=== PATIENT | female | born 1955 | race Caucasian/White ===

== ENCOUNTER → 2019-06-11 | Outpatient (CLI) | payer OTHER | END | disposition home or self-care (01) | LOC: RAH 10:28 | PROVIDERS: ATTEND Internal Medicine | DX: S05.12XS Contusion of eyeball and orbital tissues, left eye, sequela (principal); W19.XXXS Unspecified fall, sequela | CPT/HCPCS: 70150; 70160 ==

== ENCOUNTER → 2023-09-04 | Outpatient (CLI) | payer OTHER ==
[2023-09-04 12:23] LABS: BASOPHILS # (AUTO) 0.07 K/uL (0.00-0.20); BASOPHILS % (AUTO) 1.1 % (0.0-5.0); EOSINOPHILS # (AUTO) 0.22 K/uL (0.00-0.70); EOSINOPHILS % (AUTO) 3.4 % (0.0-8.0); HEMATOCRIT 47.3 % (36-48); IMMATURE GRANULOCYTE ABSOLUTE 0.01 K/uL (0-1); LYMPHOCYTES # (AUTO) 2.5 K/uL (1.0-4.8); LYMPHOCYTES % (AUTO) 38.6 % (21.0-51.0); MEAN CORPUSCULAR HEMOGLOBIN 35.9 pg (27.0-33.0); MEAN CORPUSCULAR VOLUME 105.3 fL (79-99); MONOCYTES # (AUTO) 0.5 K/uL (0.1-1.0); MONOCYTES % (AUTO) 7.6 % (3.0-13.0); NEUTROPHILS # (AUTO) 3.2 K/uL (1.8-7.7); NEUTROPHILS % (AUTO) 49.1 % (40.0-77.0); PLATELET COUNT (AUTO) 228 K/uL (130-400); RED BLOOD CELL COUNT(AUTO) 4.49 MIL/uL (4.00-5.50); RED CELL DISTRIBUTION WIDTH 12.1 % (11.0-15.5); WHITE BLOOD COUNT (AUTO) 6.6 K/uL (4.8-10.8)
[2023-09-04 12:48] LABS: ALBUMIN 4.1 g/dL (3.5-5.0); BILIRUBIN,TOTAL 0.9 mg/dL (0.2-1.0); CREATININE 0.7 mg/dL (0.5-1.5); MAGNESIUM 1.9 mg/dL (1.80-2.40); POTASSIUM 4.4 mmol/L (3.5-5.1); T4 (THYROXINE) 8.1 ug/dL (4.7-13.3); THYROID STIMULATING HORMONE 3.55 uIU/mL (0.36-3.74)
== END | disposition home or self-care (01) ==
LOC: LAB 10:49
PROVIDERS: ATTEND Internal Medicine Cardiovascular Disease
DX: R00.2 Palpitations (principal); E78.5 Hyperlipidemia, unspecified
CPT/HCPCS: 36415; 80053; 80061; 83735; 84436; 84443; 84479; 85025

== ENCOUNTER → 2023-09-11 | Outpatient (CLI) | payer OTHER | END | disposition home or self-care (01) | LOC: OIH 09:40 | PROVIDERS: ATTEND Internal Medicine Cardiovascular Disease | DX: Z13.6 Encounter for screening for cardiovascular disorders (principal) | CPT/HCPCS: 75571 ==

== ENCOUNTER 2024-05-06 05:53 | Day surgery (SDC) | payer OTHER ==
[2024-05-06] VITALS (19 sets, daily range): BP systolic 101–117; BP diastolic 54–75; PULSE 59–68; RESP 14–16
[~2024-05-06] VITALS: Ht 177.8 cm; Wt 90.7 kg
[~2024-05-06 05:53] MED LIST: APIX5TAB PO; ASCO500T19 PO; ATOR10 PO; BIOT1CAP3 PO; CALC-866 PO; LEVO125C4 PO; MAGN400T40 PO; METO25TA6 PO; PROP225C24 PO; VIT1CAPS47 PO; [UNRECOGNIZED DRUG - CODE] PO
[2024-05-06] MEDS: 0.9%NACL 1000ML 1,000 ML IV ONE (06:46)
[2024-05-06] MEDS ORDERED: PHENYLEPHRINE HCL 10 MG/ML 1ML VIAL IV ONE ×3 (06:51→13:02)
[2024-05-06] MEDS ORDERED: GLYCOPYRROLATE 0.2 MG/ML 5 ML VIAL ONE (06:51)
[2024-05-06] MEDS ORDERED: DEXAMETHASONE SOD PHOSPHATE 10MG/ML 1ML VIAL ONE (06:51)
[2024-05-06] MEDS ORDERED: MIDAZOLAM HCL 1 MG/ML 2ML VIAL ONE (06:51)
[2024-05-06] MEDS ORDERED: LIDOCAINE PF 100MG/5ML (2%) SYRINGE 5ML ONE (06:51)
[2024-05-06] MEDS ORDERED: ONDANSETRON 4MG INJ ONE (06:51)
[2024-05-06] MEDS ORDERED: PROPOFOL 10 MG/ML 20ML VIAL IV ONE (06:52)
[2024-05-06] MEDS ORDERED: EPHEDRINE SULFATE 50 MG/ML AMPULE ONE (06:52)
[2024-05-06] MEDS ORDERED: ROCURONIUM BROMIDE 10MG/1ML 5ML VL ONE (06:52)
[2024-05-06] MEDS ORDERED: NEOSTIGMINE METHYLSULFATE 1MG/ML IV ONE (06:52)
[2024-05-06] MEDS ORDERED: FENTANYL CITRATE PF 50 MCG/1 ML 5ML AMP IV ONE (06:52)
[2024-05-06] MEDS ORDERED: HEPARIN 10,000 UNIT/10ML (1,000 UNIT/ML) VIAL ONE ×3 (07:29→10:26)
[2024-05-06] MEDS ORDERED: LIDOCAINE HCL 400MG/20ML VIAL ONE (07:40)
[2024-05-06] MEDS ORDERED: AMIOdarone 150MG VIAL ONE (08:53)
[2024-05-06] MEDS ORDERED: PROTAMINE SULFATE 10 MG/ML 5 ML VIAL ONE (13:41)
[2024-05-06] MEDS ORDERED: PANTOPRAZOLE 40 MG TAB DR PO ONE (15:30)
[2024-05-06] MEDS ORDERED: SUCRALFATE 1 GM/10 ML PO ONE (15:30)
== END 2024-05-06 18:15 | disposition home or self-care (01) ==
LOC: DAH 05:53
PROVIDERS: ATTEND Internal Medicine Cardiovascular Disease
DX: I48.0 Paroxysmal atrial fibrillation (principal); E78.5 Hyperlipidemia, unspecified; E03.9 Hypothyroidism, unspecified; F32.A Depression, unspecified; M85.80 Other specified disorders of bone density and structure, unspecified site; E66.9 Obesity, unspecified; G62.9 Polyneuropathy, unspecified; Z90.89 Acquired absence of other organs; Z90.49 Acquired absence of other specified parts of digestive tract; Z90.710 Acquired absence of both cervix and uterus; Z98.890 Other specified postprocedural states; Z79.82 Long term (current) use of aspirin; Z79.899 Other long term (current) drug therapy
CPT/HCPCS: 93656; 93005; 93655; 93657 ×2; 85347 ×9; 36415; A4344; C1894 ×2; C1732 ×3; A4649 ×2; C1766; J3010; J3490 ×4; J1100; J7030; J2001; J2720; J1644 ×5; J2250; J2704; J2405; J2710; J2371 ×3; J0282; A4215; A4222; A4221; A4663; A4216; A4606; A4223 ×3

== ENCOUNTER 2025-05-28 15:28 | Emergency (ER) | payer OTHER ==
[~2025-05-28] VITALS: Ht 177.8 cm; Wt 90.7 kg
[~2025-05-28 15:28] MED LIST changes: -LEVO125C4 PO; +LEVO125C5 PO
[2025-05-28 15:32] VITALS: BP 158/98; PULSE 78; RESP 18; TEMP 97.8
[2025-05-28 16:05] LABS: IMMATURE GRANULOCYTE ABSOLUTE 0.02 K/uL (0-1); NUCLEATED RED BLOOD CELLS 0.0 % (0.0-0.19); PLATELET COUNT (AUTO) 247 K/uL (130-400); RED BLOOD CELL COUNT(AUTO) 4.33 MIL/uL (4.00-5.50); RED CELL DISTRIBUTION WIDTH 12.6 % (11.0-15.5); WHITE BLOOD COUNT (AUTO) 7.6 K/uL (4.8-10.8)
[2025-05-28 16:15] LABS: CREATININE 0.7 mg/dL (0.5-1.0); GLOMERULAR FILTR. RATE CALC 92.0 mL/min (>90); GLUCOSE,RANDOM 119.0 mg/dL (70-105); INR 1.14 (0.85-1.15); SODIUM SERUM 140.0 mmol/L (136-145); UREA NITROGEN, BLOOD 14.0 mg/dL (7-18)
[2025-05-28 16:23] LABS: ALCOHOL, BLOOD 14.0 mg/dL (0-10); ASPARTATE AMINOTRANSFERASE 16.0 U/L (10-37); CREATINE KINASE, TOTAL 266.0 U/L (21-232); TOTAL PROTEIN, SERUM 7.2 g/dL (6.0-8.3)
--- NOTE | 2025-05-28 16:33 | HMCIMG ---
EXAM: CT Cervical Spine Without IV contrast. CLINICAL HISTORY: fall TECHNIQUE: Axial computed tomography images of the cervical spine without intravenous contrast. Sagittal and coronal reformatted images were generated. COMPARISON: None provided. FINDINGS: ALIGNMENT: Bony alignment is anatomic. DEGENERATIVE CHANGES: Multiple perivertebral osteophytes noted.No significant canal stenosis or neural foraminal narrowing is evident. SOFT TISSUES: The prevertebral soft tissues are within normal limits. BONES: No acute fracture or aggressively appearing osseous lesion. IMPRESSION: 1. No acute cervical spine fracture or dislocation. 2. Multilevel degenerative changes with perivertebral osteophytes, without significant canal stenosis or neural foraminal narrowing. 3. Normal prevertebral soft tissues. 4. Anatomic bony alignment. /[place]
--- NOTE | 2025-05-28 17:01 | HMCIMG ---
EXAM: CT Head Without IV contrast. CLINICAL HISTORY: FALL, ON ELIQUIS TECHNIQUE: Axial computed tomography images of the head/brain without intravenous contrast. COMPARISON: None provided. FINDINGS: BRAIN: No evidence of acute hemorrhage. No mass lesion. No CT evidence for acute territorial infarct. No midline shift or extra-axial collections. VENTRICLES: No hydrocephalus. ORBITS: The orbits are unremarkable. SINUSES AND MASTOIDS: The paranasal sinuses and mastoid air cells are clear. BONES: No fracture. SOFT TISSUES: Unremarkable. IMPRESSION: No acute intracranial abnormality. /[place]
--- NOTE | 2025-05-28 17:07 | HMCIMG ---
EXAM: CR right Wrist, 2 View. CLINICAL HISTORY: FALL, COMPARISON: None provided. FINDINGS: Mildly displaced, comminuted fracture of the distal radius with slight volar angulation of the distal fracture fragment. Mildly displaced fracture of the distal ulna involving the styloid process. Joint spaces remain anatomically aligned. Radiocarpal joint osteoarthritis. IMPRESSION: 1. Mildly displaced, comminuted distal radius fracture with slight volar angulation and mildly displaced distal ulna fracture involving the styloid process. 2. Radiocarpal joint osteoarthritis. /[place]
--- NOTE | 2025-05-28 17:08 | HMCIMG ---
EXAM: CR Chest, 1 View. CLINICAL HISTORY: fall COMPARISON: None provided. FINDINGS: LUNGS: There is no mass, infiltrate, or acute pulmonary abnormality. PLEURAL SPACES: No evidence of pleural effusion or pneumothorax. MEDIASTINUM: Cardiac size and mediastinal contours within normal limits. BONES: No aggressive appearing osseous lesion seen. IMPRESSION: No acute cardiopulmonary pathology is evident. /[place]
[2025-05-28] MEDS ORDERED: ACET-2247 PO (17:36)
--- NOTE | 2025-05-28 17:36 | ERN ---
ED Note History of Present Illness Stated Complaint: FALL Chief Complaint: Multiple Trauma/Fall Time Seen by MD: 15:35 Dictation: 70-year-old female presenting to the emergency department after mechanical fall on blood thinners head injury and right wrist pain with deformity. No chest pain shortness of breath or abdominal pain Allergies: Coded Allergies: No Known Drug Allergies (Unverified Allergy, Unknown, 05/01/24) Home Meds Reported Medications Calcium/D3/Mag Ox/[employer] Equipment [employer]/[place]/Zn (Caltrate 101-L3-Uxlvwumx Tab) 600 Mg-20 Tablet, 1 EACH PO DAILY, TAB 05/05/24 Atorvastatin Calcium (LIPITOR) 10 Mg Tab, 10 MG PO AM, TAB 05/05/24 Magnesium Oxide (Magnesium) 400 Mg Magnesium Tablet, 400 MG PO DAILY, TAB 05/05/24 Cholecalciferol (Vitamin D3) (Vitamin D3) 125 Mcg (5000 Unit) Tablet, 125 MCG PO DAILY, TAB 05/05/24 Biotin (Biotin) 1 Mg Capsule, 1 MG PO DAILY, CAP 05/01/24 Ascorbic Acid/Ascorbate Sodium (Vitamin C 500 mg Tablet Chew) 500 Mg Tab.chew, 500 MG PO DAILY, TAB.CHEW 05/01/24 Vit C/E/Zn/Coppr/Lutein/Zeaxan (Preservision Areds 2 Softgel) 250MG-90MG Capsule, 1 EACH PO DAILY, CAP 05/01/24 Levothyroxine Sodium (Levothyroxine) 125 Mcg Capsule, 125 MCG PO AM, CAP 05/01/24 Metoprolol Tartrate (Metoprolol Tartrate) 25 Mg Tablet, 25 MG PO BID, TAB 05/01/24 Apixaban (Eliquis) 5 Mg Tablet, 5 MG PO BID, TAB 05/01/24 Propafenone HCl (Propafenone HCl) 225 Mg Cap.er.12h, 225 MG PO BID, CAPSULE. 05/01/24 Past Medical History Past Medical History: Heart Disease, Hypothyroid Surgical History: None Surgical History Other: RIGHT WRIST SX, JAW SX Review of System Dictation Constitutional: Negative for fever,chills, and weight loss Eyes: Negative for injury, pain,redness, and discharge ENT: Negative for injury,pain or swelling Cardiovascular: Negative for chest pain, palpitations, and edema Respiratory: Negative for shortness of breath, cough, and wheezing, Abdomen/GI: Negative for abdominal pain, nausea, vomiting, diarrhea, and constipation Back: Negative for injury and pain : Negative for injury, bleeding and discharge MS/Extremity: Per HPI Skin: Negative for rash, and discoloration Neuro: Per HPI Initial Vital Sign VS Vital Signs Date Time Temp Pulse Resp B/P (MAP) Pulse Ox O2 Delivery O2 Flow Rate FiO2 05/28/25 15:32 97.9 78 18 158/98 95 Physical Exam Dictation General: awake, alert, uncomfortable Head/Face: Normocephalic, atraumatic Eyes: PERRL, EOMI, vision at baseline ENT: oral cavity clear, TMs clear, no signs of infection Neck: Trachea midline, supple, no nuchal rigidity Cardiovascular: RRR, normal S1/S2, No MRGs, no JVD Respiratory: CTAB, no respiratory distress, No rales or wheezes Abdomen: Soft, non-tender, non-distended, normal bowel sounds, no guarding or rebound. Skin: Warm, dry, normal turgor, no rash MS/Extremity: Pulses equal, no cyanosis, neurovascular intact, FROM, right tenderness to palpation to the wrist area closed mild deformity good pulses Neuro: COAx4, GCS 15, strength 5/5, CN 2-12 intact, normal cerebellar exam, normal gait, Psych: Normal behavior, mood, and affect normal Results (Laboratory/Radiology) Laboratory/Radiology Laboratory Tests Test 05/28/25 15:54 White Blood Count 7.6 K/uL (4.8-10.8) Red Blood Count 4.33 MIL/uL (4.00-5.50) Hemoglobin 15.5 g/dL (12.0-16.0) Hematocrit 44.3 % (36-48) Mean Corpuscular Volume 102.3 fL (79-99) H Mean Corpuscular Hemoglobin 35.8 pg (27.0-33.0) H Mean Corpuscular Hemoglobin Concent 35.0 g/dL (32.0-36.0) Red Cell Distribution Width 12.6 % (11.0-15.5) Platelet Count 247 K/uL (130-400) Mean Platelet Volume 9.9 fL (7.5-10.5) Immature Granulocyte % (Auto) 0.3 % (0-1) Neutrophils (%) (Auto) 67.7 % (40.0-77.0) Lymphocytes (%) (Auto) 25.0 % (21.0-51.0) Monocytes (%) (Auto) 6.2 % (3.0-13.0) Eosinophils (%) (Auto) 0.3 % (0.0-8.0) Basophils (%) (Auto) 0.5 % (0.0-5.0) Neutrophils # (Auto) 5.2 K/uL (1.8-7.7) Lymphocytes # (Auto) 1.9 K/uL (1.0-4.8) Monocytes # (Auto) 0.5 K/uL (0.1-1.0) Eosinophils # (Auto) 0.02 K/uL (0.00-0.70) Basophils # (Auto) 0.04 K/uL (0.00-0.20) Absolute Immature Granulocyte (auto 0.02 K/uL (0-1) Nucleated Red Blood Cells 0.0 % (0.0-0.19) Prothrombin Time 11.9 SEC (9.6-11.6) H Prothromb Time International Ratio 1.14 (0.85-1.15) Activated Partial Thromboplast Time 25.7 SEC (26.3-35.5) L Sodium Level 140 mmol/L (136-145) Potassium Level 4.0 mmol/L (3.5-5.1) Chloride Level 103 mmol/L (101-111) Carbon Dioxide Level 28 mmol/L (21-32) Blood Urea Nitrogen 14 mg/dL (7-18) Creatinine 0.7 mg/dL (0.5-1.0) Glomerular Filtration Rate Calc 92 mL/min (>90) Random Glucose 119 mg/dL (70-105) H Total Calcium 9.0 mg/dL (8.5-10.1) Total Bilirubin 0.5 mg/dL (0.2-1.0) Direct Bilirubin 0.2 mg/dL (0.0-0.3) Aspartate Amino Transf (AST/SGOT) 16 U/L (10-37) Alanine Aminotransferase (ALT/SGPT) 34 U/L (12-78) Alkaline Phosphatase 130 U/L (50-136) Total Creatine Kinase 266 U/L (21-232) #H Troponin I High Sensitivity 22 ng/L (4-50) Total Protein 7.2 g/dL (6.0-8.3) Albumin 4.0 g/dL (3.5-5.0) Serum Alcohol 14 mg/dL (0-10) H Labs Reviewed?: Yes EKG Comment: Heart rate 71, normal intervals no STEMI or STEMI equivalent ED Course ED Course Orders Procedure Category Date Status Time Ct Head/Brain W/O CT 05/28/25 Resulted Contrast 15:35 Wrist Comp 3+Vws Rt RAD 05/28/25 Resulted 15:35 Chest 1vw RAD 05/28/25 Resulted 15:38 Ct Cervical Spine W/O CT 05/28/25 Resulted Contrast 15:38 12 Lead Ekg Tracing- EKG 05/28/25 Logged Technical 15:38 Basic Metabolic Panel LAB 05/28/25 Complete 15:38 Alcohol, Blood LAB 05/28/25 Complete 15:38 Cbc With Differential LAB 05/28/25 Complete 15:38 Hepatic Function Panel LAB 05/28/25 Complete 15:38 Creatine Kinase, Total LAB 05/28/25 Complete 15:38 Pt And Ptt LAB 05/28/25 Complete 15:38 Troponin I High LAB 05/28/25 Complete Sensitivity 15:38 Ondansetron 4mg Inj PHA 05/28/25 Complete (Zofran 4mg Inj) 15:50 Ondansetron 4mg Inj PHA 05/28/25 Complete (Zofran 4mg Inj) 16:00 Morphine 4mg Syg PHA 05/28/25 Complete (Morphine 4mg Syg) 16:00 Morphine 4mg Syg PHA 05/28/25 Complete (Morphine 4mg Syg) 16:00 Current Medications Medications (Trade) Dose Ordered Sig/Brayan Route PRN Reason Start Time Stop Time Status Last Admin Dose Admin Morphine Sulfate (morPHINE 4MG SYG) 4 mg ONCE ONCE IVP 05/28/25 16:00 05/28/25 16:05 DC 05/28/25 16:15 Morphine Sulfate (morPHINE 4MG SYG) 4 mg STK-MED ONCE .ROUTE 05/28/25 16:00 05/28/25 16:00 DC Ondansetron HCl (zoFRAN 4MG INJ) 4 mg ONCE ONCE IVP 05/28/25 16:00 05/28/25 16:01 DC 05/28/25 16:15 Ondansetron HCl (zoFRAN 4MG INJ) 4 mg STK-MED ONCE .ROUTE 05/28/25 15:50 05/28/25 15:50 DC Vital Signs Date Time Temp Pulse Resp B/P (MAP) Pulse Ox O2 Delivery O2 Flow Rate FiO2 05/28/25 15:32 97.9 78 18 158/98 95 Medical Decision Making MDM MDM: Differential diagnosis: Rationale: Tests considered and ordered secondary to shared decision making include: Previous outside records reviewed: Old ER visits. Risk of complication and/or morbidity or mortality of patient management: None Medications-Per medication reconciliation Need for hospitalization: Patient does not meet criteria for hospitalization. Need for emergency major/minor surgery: No There are no social concerns with this patient. Prescription drug management Prescriptions will include symptomatic care Patient's prior external medical records from other ER visits were reviewed by me as indicated. Prior testing and results from previous visits were reviewed. Prior tests were taken into account with medical decision making and resource utilization, independent historian/historians were used to obtain complete medical history. I independently interpreted the test that were performed, results were reviewed by me and considered findings on radiology if ordered. Medical management and examination interpretation discussions were had by me with other qualified healthcare professionals as indicated for the patient's care. 70-year-old female mechanical fall head injury with negative CT scan of the head, wrist shows distal radius ulnar fracture minimal displacement no reduction indicated placed in fiberglass splint by the nursing staff and stable for discharge. DX & DISP Disposition: Discharge Departure Impression: Primary Impression: Head injury Additional Impression: Fracture, [place], right, closed Condition: Stable Scripts Acetaminophen (Tylenol) 325 Mg Tablet 1 TAB PO Q4HPRN PRN for pain or fever for 5 Days, #30 TAB 0 Refills Prov: DEONDRE SANDHU MD 05/28/25 Referrals: JASON MAIN MD (PCP) DEONDRE SANDHU MD May 28, 2025 17:36
--- NOTE | 2025-05-28 18:07 | NUR ---
PLEASE REFER TO TRAUMA PAPERWORK FOR DOCUMENTATION.
--- NOTE | 2025-05-29 06:32 | EKG ---
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
== END 2025-05-28 18:08 | disposition home or self-care (01) ==
LOC: EDH 15:28
DX: S52.531A Colles' fracture of right radius, initial encounter for closed fracture (principal); S52.611A Displaced fracture of right ulna styloid process, initial encounter for closed fracture; S09.90XA Unspecified injury of head, initial encounter; I51.9 Heart disease, unspecified; E03.9 Hypothyroidism, unspecified; Z79.01 Long term (current) use of anticoagulants; Z79.899 Other long term (current) drug therapy; W18.39XA Other fall on same level, initial encounter; Y93.89 Activity, other specified; Y92.89 Other specified places as the place of occurrence of the external cause; Y99.8 Other external cause status
CPT/HCPCS: 99285; 82550; 80076; 84484; 80048; 85025; 85610; 85730; 36415; 71045; 73110; 70450; 72125; 96374; 96375; 29125; 93005; J2405; J2270